=== PATIENT | female | born 1960 | race Caucasian/White ===

== ENCOUNTER 2022-07-29 14:44 | Emergency (ER) | payer BC ==
[~2022-07-29] VITALS: Ht 160 cm; Wt 108.9 kg
--- NOTE | 2022-07-29 15:07 | NUR ---
[facility], DR SOMMERS EVALUATED THE PT.
[2022-07-29 15:13] LABS: HEMATOCRIT 39.7 % (31.2-41.9); MEAN CORPUSCULAR HEMOGLOBIN 26.1 uug (24.7-32.8); MEAN CORPUSCULAR VOLUME 81.2 fL (75.5-95.3); PLATELET COUNT (AUTO) 386 K/uL (179-408)
[2022-07-29 15:18] LABS: *BILIRUBIN,URIN NEGATIVE (NEGATIVE); *CLARITY,URINE CLOUDY (CLEAR); *COLOR,URINE YELLOW (YELLOW); *KETONES,URINE NEGATIVE (NEGATIVE); *UROBILINOGEN,URINE 0.2 E.U./dl (NORMAL); LEUKOCYTE ESTERASE ,URINE 2+ (NEGATIVE); NITRITE, URINE NEGATIVE (NEGATIVE); UGLUCOSE NEGATIVE (NEGATIVE)
[2022-07-29 15:19] LABS: *BLOOD, URINE TRACE (NEGATIVE)
[2022-07-29 15:27] LABS: BILIRUBIN,DIRECT 0.1 mg/dL (0.0-0.2); BILIRUBIN,TOTAL 0.4 mg/dL (0.2-1.0); CREATININE 0.8 mg/dL (0.6-1.3); POTASSIUM 3.7 mmol/L (3.5-5.1); TOTAL PROTEIN, SERUM 7.4 g/dL (6.4-8.2)
[2022-07-29] MEDS ORDERED: CIPR-262 PO (16:17)
--- NOTE | 2022-07-29 16:33 | NUR ---
PT WAS D/C'd TO HOME. D/C INSTRUCTIONS GIVEN TO THE PT BY DR SOMMERS.
[2022-07-29 16:34] VITALS: BP 138/75
[2022-07-29 18:16] LABS: RBC,URINE 0-3 /HPF (0-3); SQUAMOUS EPITHELIAL CELL,UR MODERATE /HPF (NONE SEEN); WBC,URINE 50-80 /HPF (0-3)
[2022-07-29 18:17] LABS: BACTERIA,URINE MODERATE /HPF (NONE SEEN)
== END 2022-07-29 16:35 | disposition home or self-care (01) ==
LOC: ER 14:44
DX: N39.0 Urinary tract infection, site not specified (principal); R10.30 Lower abdominal pain, unspecified; E78.5 Hyperlipidemia, unspecified; Z87.440 Personal history of urinary (tract) infections; R03.0 Elevated blood-pressure reading, without diagnosis of hypertension
CPT/HCPCS: 36415; 83690; 84443; 85025; A4663

== ENCOUNTER 2022-12-22 16:14 | Emergency (ER) | payer BC ==
[~2022-12-22] VITALS: Ht 160 cm; Wt 108.9 kg
[~2022-12-22 16:14] MED LIST: CIPR-262 PO
[2022-12-22] MEDS ORDERED: predniSONE 20 MG TABLET ONE (17:26)
[2022-12-22] MEDS ORDERED: HYDROCODONE/APAP 5-325MG TABLET ONE (17:27)
[2022-12-22] MEDS ORDERED: ACYCLOVIR 200 MG CAPSULE ONE (17:27)
[2022-12-22] MEDS ORDERED: ACYCLOVIR 400 MG TABLET PO ONE (17:30)
[2022-12-22] MEDS ORDERED: predniSONE 20 MG TABLET PO ONE (17:30)
[2022-12-22] MEDS ORDERED: HYDROCODONE/APAP 5-325MG TABLET PO ONE (17:30)
[2022-12-22] MEDS ORDERED: PRED50TA PO (17:31)
[2022-12-22] MEDS ORDERED: HYDR-3972 PO (17:31)
[2022-12-22] MEDS ORDERED: VALA10002 PO (17:31)
[2022-12-22 17:54] LABS: *BILIRUBIN,URIN NEGATIVE (NEGATIVE); *BLOOD, URINE 1+ (NEGATIVE); *CLARITY,URINE SLIGHTLY CLOUDY (CLEAR); *COLOR,URINE YELLOW (YELLOW); *KETONES,URINE NEGATIVE (NEGATIVE); *PROTEIN,URINE NEGATIVE (NEGATIVE); *UROBILINOGEN,URINE 0.2 E.U./dl (NORMAL); LEUKOCYTE ESTERASE ,URINE 1+ (NEGATIVE); NITRITE, URINE NEGATIVE (NEGATIVE); UGLUCOSE NEGATIVE (NEGATIVE)
[2022-12-22 17:56] LABS: BASOPHILS # (AUTO) 0.2 K/UL (0.0-0.2); BASOPHILS % (AUTO) 1.6 % (0.0-2.0); DIFFERENTIAL COMMENT 1; EOSINOPHILS # (AUTO) 0.8 K/uL (0.0-0.7); EOSINOPHILS % (AUTO) 7.9 % (0.0-7.0); HEMATOCRIT 39.8 % (31.2-41.9); HEMOGLOBIN 13.1 g/dL (10.9-14.3); LYMPHOCYTES # (AUTO) 1.3 K/uL (0.8-4.8); LYMPHOCYTES % (AUTO) 12.9 % (20.5-51.5); MEAN CORPUSCULAR HEMOGLOBIN 26.2 uug (24.7-32.8); MEAN CORPUSCULAR HGB CONC 33 g/dL (32.3-35.6); MEAN CORPUSCULAR VOLUME 79.9 fL (75.5-95.3); MONOCYTES # (AUTO) 0.4 K/uL (0.1-1.30); MONOCYTES % (AUTO) 4.3 % (0.0-11.0); NEUTROPHILS # (AUTO) 7.4 K/uL (1.8-8.9); NEUTROPHILS % (AUTO) 73.3 % (38.5-71.5); PLATELET COUNT (AUTO) 306 K/uL (179-408); RED BLOOD CELL COUNT(AUTO) 4.99 MIL/uL (3.63-4.92); RED CELL DISTRIBUTION WIDTH 15.8 % (12.3-17.7); WHITE BLOOD COUNT (AUTO) 10.2 K/uL (3.8-11.8)
[2022-12-22 18:00] LABS: CALCIUM 9.3 mg/dL (8.5-10.1); CREATININE 0.9 mg/dL (0.6-1.3); POTASSIUM 3.5 mmol/L (3.5-5.1)
[2022-12-22 18:02] LABS: BACTERIA,URINE MODERATE /HPF (NONE SEEN)
[2022-12-22 18:03] LABS: SQUAMOUS EPITHELIAL CELL,UR MODERATE /HPF (NONE SEEN)
[2022-12-22 18:05] LABS: ALBUMIN 3.7 g/dL (3.4-5.0); BILIRUBIN,DIRECT 0.1 mg/dL (0.0-0.2); BILIRUBIN,TOTAL 0.3 mg/dL (0.2-1.0); TOTAL PROTEIN, SERUM 7.4 g/dL (6.4-8.2)
[2022-12-22 20:06] VITALS: BP 128/92; TEMP 97.8; O2SAT 97
[2022-12-22] MEDS ORDERED: HYDR-3980 PO (20:24)
== END 2022-12-22 19:40 | disposition home or self-care (01) ==
LOC: ER 16:14
DX: R10.13 Epigastric pain (principal); B02.9 Zoster without complications; E78.5 Hyperlipidemia, unspecified; Z79.2 Long term (current) use of antibiotics; Z79.899 Other long term (current) drug therapy
CPT/HCPCS: 99284; 74176; 76705; 80076; 80048; 81001; 83690; 85025; 36415; 87040; J7512; A4663